=== PATIENT | female | born 1955 | race Caucasian/White ===

== ENCOUNTER 2021-07-20 19:34 | Observation (INO) ==
[2021-07-20] MEDS ORDERED: Isovue-370 500 ML BOTTLE IVP ONE (19:47)
[2021-07-20 19:59] LABS: Hematocrit 47.5 % (35.3-44.9); Hemoglobin 14.9 g/dL (11.5-15.4); Mean Corpuscular HGB Conc 31.4 g/dL (31.6-35.5); Mean Corpuscular Hemoglobin 29.4 pg (28.0-33.3); Mean Corpuscular Volume 93.9 fL (83.0-100.0); Mean Platelet Volume 10.7 fL (9.4-12.4); Platelet Count 308 K/mcL (140-400); Red Blood Count 5.06 M/mcL (3.82-4.97); Red Cell Distribution Width 14.5 % (11.5-14.5); White Blood Count 11.4 K/mcL (4.3-11.1)
[2021-07-20 20:07] LABS: INR 1.1; Prothrombin Time 11.8 Seconds (9.4-12.1)
[2021-07-20 20:09] LABS: Activated Partial Thrombo Time 32.7 Seconds (26.0-36.0)
[2021-07-20 20:16] LABS: BUN/Creatinine Ratio 14 (6-26); Blood Urea Nitrogen 11 mg/dL (8-23); Carbon Dioxide 33 mEq/L (23-29); Chloride 100 mEq/L (98-107); Glucose 127 mg/dL (70-105); Osmolality,Calculated 291 (280-300); Potassium 4.4 mEq/L (3.5-5.1); Sodium 140 mEq/L (136-145); eGFR For African Americans > 60 (> 60); eGFR For Non-African Americans > 60 (> 60)
[2021-07-20 20:17] LABS: Troponin I < 0.03 ng/mL (< 0.04)
[2021-07-20] MEDS ORDERED: Naloxone 0.4 MG/ML INJ IVP PRN (22:23)
[2021-07-20] MEDS ORDERED: Ondansetron 4 MG/2 ML VIAL IVP PRN (22:23)
[2021-07-20] MEDS ORDERED: *HR* HYDROcodone/Acet 5/325 mg TABLET PO PRN (22:23)
[2021-07-20] MEDS ORDERED: Acetaminophen 325 MG TABLET PO PRN (22:23)
[2021-07-20] MEDS ORDERED: Melatonin 3 MG TABLET PO PRN (22:23)
[2021-07-20] MEDS ORDERED: Aspirin Enteric Coated 325 MG Tablet PO STA (22:25)
[2021-07-20] MEDS ORDERED: Perflutren Lipid Microsphere 1.3 ML in 0.9 % Sodium Chloride 8.7 ML IVP PRN (22:31)
[2021-07-21 01:10] LABS: Influenza A PCR Negative (Negative); Influenza B PCR Negative (Negative); Resp. Syncytial Virus PCR Negative (Negative)
[2021-07-21 01:11] LABS: SARS-CoV-2 by PCR (In House) Negative (Negative)
[2021-07-21 02:02] LABS: Hematocrit 45.6 % (35.3-44.9); Hemoglobin 13.9 g/dL (11.5-15.4); Mean Corpuscular HGB Conc 30.5 g/dL (31.6-35.5); Mean Corpuscular Hemoglobin 28.7 pg (28.0-33.3); Mean Platelet Volume 10.7 fL (9.4-12.4); Platelet Count 277 K/mcL (140-400); Red Blood Count 4.85 M/mcL (3.82-4.97); Red Cell Distribution Width 14.4 % (11.5-14.5); White Blood Count 12.9 K/mcL (4.3-11.1)
[2021-07-21 02:12] LABS: INR 1.1; Prothrombin Time 12.1 Seconds (9.4-12.1)
[2021-07-21 02:15] LABS: Activated Partial Thrombo Time 35.3 Seconds (26.0-36.0)
[2021-07-21 02:24] LABS: Alanine Aminotransferase 14 Units/L (7-52); Albumin 3.6 g/dL (3.5-5.7); Albumin/Globulin Ratio 1.2 (1.1-2.2); Alkaline Phosphatase 53 Units/L (34-104); Aspartate Amino Transferase 18 Units/L (13-39); BUN/Creatinine Ratio 18 (6-26); Bilirubin,Total 0.6 mg/dL (0.3-1.0); Blood Urea Nitrogen 11 mg/dL (8-23); Calcium 8.7 mg/dL (8.6-10.3); Carbon Dioxide 29 mEq/L (23-29); Chloride 101 mEq/L (98-107); Globulin 2.9 g/dL (2.4-3.5); Glucose 122 mg/dL (70-105); Osmolality,Calculated 285 (280-300); Potassium 4.2 mEq/L (3.5-5.1); Sodium 137 mEq/L (136-145); Total Protein 6.5 g/dL (6.4-8.9); eGFR For African Americans > 60 (> 60); eGFR For Non-African Americans > 60 (> 60)
[2021-07-21 02:25] LABS: Chol/HDL Ratio 3.2 (0-4.9); Magnesium 1.6 mg/dL (1.6-2.6); Phosphorous 3.6 mg/dL (2.7-4.5)
[2021-07-21] MEDS ORDERED: *HR* Dextrose 50 % in Water (Syg) 50 ML SYRINGE IVP PRN (03:26)
[2021-07-21] MEDS ORDERED: Dextrose Gel 15 GM/37.5 ML TUBE PO PRN ×2 (03:26)
[2021-07-21] MEDS ORDERED: D5% in Water 1,000 ML IVC PRN (03:26)
[2021-07-21] MEDS: Ipratropium/Albuterol Neb 3 ML IH SCH ×4 (04:07→20:14)
[2021-07-21 06:06] LABS: Folate 11.5 ng/mL (3.0-16.0)
[2021-07-21] MEDS: Insulin LISPRO 300 UNITS/3 ML VIAL SUBQ SCH ×3 (08:25→17:23)
[2021-07-21] MEDS: Nicotine 21 MG PATCH.TD24 TD SCH (08:26)
[2021-07-21] MEDS: Insulin DETEMIR 100 UNIT/ML X5UNITS SUBQ SCH ×2 (08:28→21:14)
[2021-07-21] MEDS ORDERED: Aspirin Enteric Coated 81 MG Tablet PO SCH (09:00)
[2021-07-21] MEDS ORDERED: Budesonide/Formoterol 160/4.5 1 PUFF INH IH SCH (10:00)
[2021-07-21 11:37] LABS: Estimated Average Glucose 151 mg/dl; Hemoglobin A1C 6.9 %
[2021-07-21] MEDS ORDERED: GuaiFENesin/Codeine Oral Soln 5 ML UDC PO PRN (12:00)
[2021-07-21] MEDS: predniSONE 20 MG TABLET PO SCH (15:38)
[2021-07-21] MEDS: Budesonide/Formoterol 160/4.5 1 PUFF INH IH SCH (20:15)
[2021-07-21] MEDS ORDERED: *HR* Labetalol 20 MG/4 ML SYRINGE IVP ONE (21:48)
[2021-07-21] MEDS ORDERED: *HR* Metoprolol 5 MG/5 ML VIAL IVP ONE (22:56)
[2021-07-22] MEDS ORDERED: D5% in Water 1,000 ML IVC PRN (00:03)
[2021-07-22] MEDS ORDERED: Dextrose Gel 15 GM/37.5 ML TUBE PO PRN ×2 (00:03)
[2021-07-22] MEDS ORDERED: *HR* Dextrose 50 % in Water (Syg) 50 ML SYRINGE IVP PRN (00:03)
[2021-07-22] MEDS ORDERED: *HR* Labetalol 20 MG/4 ML SYRINGE IVP ONE (00:07)
[2021-07-22] MEDS ORDERED: Insulin LISPRO 300 UNITS/3 ML VIAL SUBQ SCH (00:15)
[2021-07-22] MEDS: Ipratropium/Albuterol Neb 3 ML IH SCH ×2 (04:00→07:31)
[2021-07-22] MEDS: Budesonide/Formoterol 160/4.5 1 PUFF INH IH SCH (07:31)
[2021-07-22 08:05] LABS: Basophils % 0.2 %; Eosinophils % 0.1 %; Hematocrit 44.3 % (35.3-44.9); Hemoglobin 14.1 g/dL (11.5-15.4); Immature Granulocytes % 0.4 % (0-4); Lymphocytes # 1.6 K/mcL (0.6-4.6); Lymphocytes % 12.3 %; Mean Corpuscular HGB Conc 31.8 g/dL (31.6-35.5); Mean Corpuscular Hemoglobin 29.7 pg (28.0-33.3); Mean Corpuscular Volume 93.3 fL (83.0-100.0); Mean Platelet Volume 11.4 fL (9.4-12.4); Monocytes # 0.9 K/mcL (0.0-1.3); Monocytes % 6.7 %; Neutrophils # 10.4 K/mcL (1.6-8.9); Platelet Count 295 K/mcL (140-400); Red Blood Count 4.75 M/mcL (3.82-4.97); Red Cell Distribution Width 14.1 % (11.5-14.5); Segmented Neutrophils % 80.3 %; White Blood Count 12.9 K/mcL (4.3-11.1)
[2021-07-22 08:23] LABS: BUN/Creatinine Ratio 23 (6-26); Blood Urea Nitrogen 13 mg/dL (8-23); Calcium 8.8 mg/dL (8.6-10.3); Carbon Dioxide 29 mEq/L (23-29); Chloride 104 mEq/L (98-107); Glucose 156 mg/dL (70-105); Osmolality,Calculated 283 (280-300); Potassium 4.1 mEq/L (3.5-5.1); Sodium 135 mEq/L (136-145); eGFR For African Americans > 60 (> 60); eGFR For Non-African Americans > 60 (> 60)
[2021-07-22] MEDS ORDERED: Aspirin Enteric Coated 81 MG Tablet PO SCH (09:00)
[2021-07-22] MEDS ORDERED: hydroCHLOROthiazide 25 MG TABLET PO SCH (09:00)
[2021-07-22] MEDS ORDERED: amLODIPine 5 MG TABLET PO SCH (09:00)
[2021-07-22] MEDS: Nicotine 21 MG PATCH.TD24 TD SCH (09:05)
[2021-07-22] MEDS: predniSONE 20 MG TABLET PO SCH (09:06)
[2021-07-22] MEDS: Insulin LISPRO 300 UNITS/3 ML VIAL SUBQ SCH ×2 (09:07→11:56)
[2021-07-22] MEDS: Insulin DETEMIR 100 UNIT/ML X5UNITS SUBQ SCH (09:12)
[2021-07-22] MEDS ORDERED: Tiotropium 10 INH DOSE IH SCH (10:00)
[2021-07-22 12:06] VITALS: BP 137/77; PULSE 58; TEMP 98; O2SAT 97
== END 2021-07-22 13:16 | disposition home or self-care (01) ==
LOC: SUATTDRO → EMEROOARM 19:34 → 3BNU 19:34 → SUATTDRO 23:19 → 3BNU 07-21 00:09
PROVIDERS: ADMIT Internal Medicine; ATTEND Internal Medicine